=== PATIENT | male | born 1990 ===

== ENCOUNTER 2016-08-05 12:05 | Emergency (ER) | payer MEDICAID ==
[2016-08-05 12:16] VITALS: RESP 18
--- NOTE | 2016-08-05 14:12 | C.PDOC ---
History Of Present Illness 26 y/o male c/o cough with whitish yellow sputum, headache when coughing, feeling hot and cold and feeling like he wants to throw up after coughing x 4 days with rhinorrhea. pt taking nyquil and dayquil with no improvement. pt denies cp, sob. no known sick contacts. Time Seen by Provider: 08/05/16 13:10 Chief Complaint (Nursing): Cough, Cold, Congestion Past Medical History Reviewed: Historical Data, Nursing Documentation, Vital Signs Vital Signs: Last Vital Signs Temp 97.1 F L 08/05/16 12:14 Pulse 77 08/05/16 12:14 Resp 18 08/05/16 12:14 BP 130/78 08/05/16 12:14 Pulse Ox 97 08/05/16 12:14 - Medical History PMH: Anxiety, Asthma, Bronchitis Surgical History: No Surg Hx - [facility] Procedures TETANUS TOXOID ADMINIST (06/18/14) Family History: States: Unknown Family Hx - Social History Hx Tobacco Use: No Hx Alcohol Use: Yes Hx Substance Use: No - Immunization History Hx Tetanus Toxoid Vaccination: No Hx Influenza Vaccination: No Hx Pneumococcal Vaccination: No Review Of Systems Constitutional: Positive for: Chills, Malaise. Negative for: Fever Eyes: Negative for: Pain ENT: Negative for: Ear Pain Cardiovascular: Negative for: Chest Pain, Palpitations Respiratory: Positive for: Cough. Negative for: Shortness of Breath, SOB with Excertion, Pleuritic Pain, Wheezing Gastrointestinal: Negative for: Nausea, Vomiting, Abdominal Pain Physical Exam - Physical Exam Appears: Non-toxic, No Acute Distress Skin: Normal Color, Warm, Dry Head: Atraumatic, Normacephalic Oral Mucosa: Moist Tongue: Normal Appearing Lips: Normal Appearing Teeth: Normal Dentition Throat: Normal Neck: Normal, Normal ROM Cardiovascular: Rhythm Regular, No Murmur Respiratory: Normal Breath Sounds, No Rales, No Rhonchi, No Wheezing Gastrointestinal/Abdominal: Normal Exam, Bowel Sounds, Soft, No Tenderness ED Course And Treatment O2 Sat by Pulse Oximetry: 97 Medical Decision Making Medical Decision Makin26 y/o male with uri; will tx with ibuprofen and cough med, f/u pmd this week. Disposition Counseled Patient/Family Regarding: Diagnosis, Need For Followup, Rx Given - Disposition Disposition: HOME/ ROUTINE Disposition Time: 14:15 Condition: GOOD Prescriptions: Ibuprofen [Motrin] 600 mg PO TID #30 tab Guaifenesin [Mucinex] 600 mg PO BID #10 tab.er.12h Instructions: Upper Respiratory Infection (ED) - Clinical Impression Clinical Impression: Upper respiratory infection
[2016-08-05 15:00] VITALS: BP 149/70; PULSE 60; TEMP 98.1
[2016-08-07 06:39] VITALS: O2SAT 97
== END 2016-08-05 15:00 | disposition home or self-care (01) ==
LOC: C.ER 12:05
DX: J06.9 Acute upper respiratory infection, unspecified (principal)

== ENCOUNTER 2016-08-06 04:10 | Emergency (ER) | payer MEDICAID ==
[2016-08-06 04:30] VITALS: RESP 20; O2SAT 98
[2016-08-06] MEDS ORDERED: Albuterol-Ipratrop 3 mg / 0.5 (3 ml) UD INH STA (04:46)
--- NOTE | 2016-08-06 04:46 | C.PDOC ---
History Of Present Illness 26 year old patient presents to the ED complaining of chest congestion and tightness that began today. Patient was seen in the ED yesterday for URI symptoms and sent home with Juveex and Motjamie. Patient states he feels like he' s having "a bronchitis attack." Patient does not have an asthma pump. Patient denies fever. Time Seen by Provider: 08/06/16 04:15 Chief Complaint (Nursing): Cough, Cold, Congestion History Per: Patient History/Exam Limitations: no limitations Onset/Duration Of Symptoms: Days (1) Current Symptoms Are (Timing): Still Present Location Of Pain: Other Sick Contacts (Context): None Associated Symptoms: Other (chest congestion and tightness) Ear Symptoms: Bilateral: None Severity: Mild Pain Scale Rating Of: 3 Recent travel outside of the [place]: No Additional History Per: Prior Records Past Medical History Reviewed: Historical Data, Nursing Documentation, Vital Signs Vital Signs: Last Vital Signs Temp 97.8 F 08/06/16 05:46 Pulse 72 08/06/16 05:46 Resp 20 08/06/16 05:46 BP 135/72 08/06/16 05:46 Pulse Ox 98 08/06/16 05:46 - Medical History PMH: Anxiety, Asthma, Bronchitis - [facility] Procedures TETANUS TOXOID ADMINIST (06/18/14) Family History: States: Unknown Family Hx - Social History Hx Tobacco Use: No Hx Alcohol Use: Yes Hx Substance Use: No - Immunization History Hx Tetanus Toxoid Vaccination: No Hx Influenza Vaccination: No Hx Pneumococcal Vaccination: No Review Of Systems Except As Marked, All Systems Reviewed And Found Negative. Constitutional: Negative for: Fever Respiratory: Positive for: Shortness of Breath, Other (congestion) Physical Exam - Physical Exam Appears: Non-toxic, No Acute Distress Skin: Warm, Dry Head: Atraumatic, Normacephalic Eye(s): bilateral: Normal Inspection, PERRL, EOMI Ear(s): Bilateral: Normal Nose: Normal Throat: Normal, No Erythema Neck: Normal ROM, Supple Chest: Symmetrical Cardiovascular: Rhythm Regular Respiratory: No Rales, No Rhonchi, Wheezing (mild expiratory) Gastrointestinal/Abdominal: Soft, No Tenderness Back: No CVA Tenderness Extremity: Normal ROM Neurological/Psych: Oriented x3, Normal Speech, Normal Cognition Gait: Steady ED Course And Treatment O2 Sat by Pulse Oximetry: 98 (RA) Pulse Ox Interpretation: Normal Progress Note: Plan: -Duoneb, Prednisone. Patient feels better. Patient is discharged and instructed to follow up with PMD. Disposition Counseled Patient/Family Regarding: Diagnosis, Need For Followup, Rx Given - Disposition Referrals: [facility] [Outside] Disposition: HOME/ ROUTINE Disposition Time: 05:19 Condition: STABLE Additional Instructions: Please follow up with PMD or in clinic Continue Mucinex and take meds prescribed today Return to ER if worse Prescriptions: Albuterol HFA [Ventolin HFA 90 mcg/actuation (8 g)] 2 puff IH [id number] #1 inhaler predniSONE [Prednisone] 40 mg PO DAILY #10 tab Instructions: Upper Respiratory Infection (ED) - Clinical Impression Clinical Impression: Upper respiratory infection, Bronchospasm - PA / HEATER PLANER OPERATOR / Resident Statement MD/DO has reviewed & agrees with the documentation as recorded. - Scribe Statement The provider has reviewed the documentation as recorded by the Scribe Keturah Root All medical record entries made by the Scribe were at my direction and personally dictated by me. I have reviewed the chart and agree that the record accurately reflects my personal performance of the history, physical exam, medical decision making, and the department course for this patient. I have also personally directed, reviewed, and agree with the discharge instructions and disposition.
[2016-08-06] MEDS ORDERED: Albuterol-Ipratrop 3 mg / 0.5 (3 ml) UD ONE (04:49)
[2016-08-06 05:47] VITALS: BP 135/72; PULSE 72; TEMP 97.8
== END 2016-08-06 05:47 | disposition home or self-care (01) ==
LOC: C.ER 04:10
DX: J06.9 Acute upper respiratory infection, unspecified (principal); J98.01 Acute bronchospasm

== ENCOUNTER 2016-09-27 09:19 | Day surgery (SDC) | payer MEDICAID, MEDICARE ==
[2016-09-02 13:51] VITALS: BMI 29.2
[2016-09-27] MEDS ORDERED: Acetaminophen/Codeine elixir 120-12mg/5ml PO PRN (10:02)
[2016-09-27] MEDS ORDERED: Dextrose 5%/0.45% NS 1,000 ML IV SCH (10:15)
[2016-09-27] MEDS ORDERED: ceFAZolin IV 2 gm in Dextrose 1 GM/50 ML BAG IVPB ONE (10:28)
[2016-09-27] MEDS ORDERED: Propofol 10 mg/ml Inj (20 ML) ONE ×2 (10:29→11:29)
[2016-09-27] MEDS ORDERED: Succinylcholine Chloride 20 mg/ml Syr (5 ml) IV ONE (10:29)
[2016-09-27] MEDS ORDERED: Lactated Ringer's 1,000 ML IV ONE ×2 (10:55→12:38)
[2016-09-27] MEDS ORDERED: Lactated Ringer's 1,000 ML IV SCH (12:00)
[2016-09-27] MEDS ORDERED: HYDROmorphone 0.5 mg/0.5 ml ISec IVP PRN (12:28)
--- NOTE | 2016-09-27 13:04 | OP ---
PROCEDURE DATE: 09/27/2016 PREOPERATIVE DIAGNOSIS: Chronic tonsillitis. POSTOPERATIVE DIAGNOSIS: Chronic tonsillitis. PROCEDURE: Tonsillectomy. SIGNIFICANT FINDINGS: Chronically infected tonsils. DESCRIPTION OF PROCEDURE: The patient was brought in room, placed in supine position. Anesthesia wa s initiated through an ET tube. The patient was draped in the usual manner. Mouth gag was placed in the oral cavity, opened, suspended on the [employer] channel marketing specialist usual manner. Right tonsil was grasped, pul led medially. Incision was made in the anterior tonsillar pillar using plasma knife. Dissection was done between tonsil and tonsillar fossa using plasma knife until the tonsil was removed. Bleeding w as controlled using plasma knife. Next, the other tonsil was grasped, pulled medially. Incision was made in the anterior tonsillar pillar using plasma knife. Dissection was done between tonsil and to nsillar fossa using plasma knife until the tonsil was removed. Bleeding was controlled using plasma knife. Both tonsillar beds were rubbed vigorously with plasma knife wand. No bleeding was noted. M outh gag was let down for 30 seconds, put back up. No bleeding was noted. The mouth gag was taken d own and removed. The patient was extubated, was noted to bleeding from the mouth. Therefore, the pa tient was reintubated. Mouth gag was placed in oral cavity, opened, suspended on the [employer] channel marketing specialist u sual manner. Bleeding area was noted in the left tonsillar fossa and controlled using the plasma kni fe. The mouth gag was taken down and removed. The patient was taken off anesthesia and taken to rec overy room in stable manner. Blaine Burris MD cc: [id number] TT: 09/27/2016 13:03:56 al
[2016-09-27 14:09] VITALS: BP 123/70; PULSE 70; RESP 18; TEMP 97.1; O2SAT 100
== END 2016-09-27 13:30 | disposition home or self-care (01) ==
LOC: C.SDS 09:19
PROVIDERS: ATTEND Otolaryngology
DX: J35.01 Chronic tonsillitis (principal)
CPT/HCPCS: 42826; 88304; J0690; J2405; J2704; J3010; J7120

== ENCOUNTER 2016-10-02 00:58 | Emergency (ER) | payer MEDICAID, MEDICARE ==
[2016-09-02 13:51] VITALS: BMI 29.2
[2016-10-02 04:39] VITALS: BP 129/80; PULSE 62; RESP 18; TEMP 98; O2SAT 100
[2016-10-02 08:24] LABS: BASO % 0.3 % (0.0-2.0); EOS # 0.2 K/uL (0.0-0.7); EOS % 2.1 % (0.0-4.0); LYMPH # 1.3 K/uL (1.0-4.3); LYMPH % 15.1 % (20.0-40.0); MEAN CELL VOLUME 89.4 fL (80.0-94.0); MEAN CORPUSCULAR HEMOGLOBIN 30.3 pg (27.0-31.0); MEAN PLATELET VOLUME 7.8 fL (7.2-11.7); MONO # 1.1 K/uL (0.0-0.8); MONO % 12.6 % (0.0-10.0); RED CELL DISTRIBUTION WIDTH 13.1 % (11.5-14.5); WHITE BLOOD COUNT 8.7 K/uL (4.8-10.8)
[2016-10-02 08:25] LABS: ALKALINE PHOSPHATASE 60 U/L (38-126); ALT/SGPT 21 U/L (21-72); AST/SGOT 31 U/L (17-59); BLOOD UREA NITROGEN 14 mg/dL (9-20); CALCIUM 8.8 mg/dl (8.6-10.4); CARBON DIOXIDE 30 mmol/L (22-30); CHLORIDE 92 mmol/L (98-107); GFR AFRICAN-AMERICAN > 60; GLUCOSE,RANDOM 101 mg/dL (75-110); POTASSIUM 4.1 mmol/L (3.6-5.2); SODIUM 132 mmol/L (132-148); TOTAL PROTEIN 8.1 g/dL (6.3-8.3)
[2016-10-02 08:26] LABS: ALB/GLOB RATIO 1.2 (1.0-2.1)
== END 2016-10-02 03:00 | disposition home or self-care (01) ==
LOC: C.ER 00:58
DX: E86.0 Dehydration (principal)

== ENCOUNTER 2018-02-19 16:46 | Emergency (ER) | payer MEDICARE, MEDICAID ==
[2018-02-19 16:46] VITALS: BMI 29.2
[2018-02-19 16:52] VITALS: BP 136/85; PULSE 82; RESP 20; TEMP 98.4; O2SAT 100
[2018-02-19] MEDS ORDERED: Bacitracin 500 Units/gm Oint Foilpak UD TOP ONE (17:29)
--- NOTE | 2018-02-19 17:31 | C.PDOC ---
History Of Present Illness 27 year old male presents to the ED for evaluation of intermittent left nasal bleeding since last night. Patient reports cold symptoms for the last 3 days associated with nasal congestion, runny nose, dry cough for past 1 week. Otherwise, pt denies fever, chills, headache, dizziness, drooling, dysphagia, dypsnea, wheezing, abd. pain, nausea, vomiting, and any other associated symptoms. Ambulate to Ed for evaluation, no active epistaxis now. Time Seen by Provider: 02/19/18 17:12 Chief Complaint (Nursing): ENT Problem History Per: Patient History/Exam Limitations: None Onset/Duration Of Symptoms: Hrs Current Symptoms Are (Timing): Still Present Past Medical History Reviewed: Historical Data, Nursing Documentation, Vital Signs Vital Signs: Last Vital Signs Temp 98.4 F 02/19/18 16:49 Pulse 82 02/19/18 16:49 Resp 20 02/19/18 16:49 BP 136/85 02/19/18 16:49 Pulse Ox 100 02/19/18 16:49 - Medical History PMH: Anxiety, Bronchitis Comment Only: Asthma ((PT. DENIES- "I JUST HAVE BRONCHITIS AT TIMES")) - [facility] Procedures TETANUS TOXOID ADMINIST (06/18/14) Family History: States: Unknown Family Hx - Social History Hx Tobacco Use: No Hx Alcohol Use: Yes Hx Substance Use: No - Immunization History Hx Tetanus Toxoid Vaccination: No Hx Influenza Vaccination: No Hx Pneumococcal Vaccination: No Review Of Systems Except As Marked, All Systems Reviewed And Found Negative. Constitutional: Negative for: Fever, Chills ENT: Positive for: Nose Discharge, Nose Congestion, Other (left nasal bleeding ) Gastrointestinal: Negative for: Nausea, Vomiting Physical Exam - Physical Exam Appears: Well, Non-toxic, No Acute Distress Skin: Normal Color, Warm, Dry, No Rash Head: Normacephalic Eye(s): bilateral: PERRL Ear(s): Bilateral: Normal Nose: No Flaring, Discharge (B/L congestion with clear rhinorrhea), No Epistaxis (no active epistaxis now, bloody crust noted to left nastril), No Tenderness Oral Mucosa: Moist, No Drooling Tongue: Normal Appearing Lips: Normal Appearing Throat: Erythema (mild B/L), No Exudate, No Drooling Neck: Trachea Midline, Supple Cardiovascular: Rhythm Regular, No Murmur, No JVD Respiratory: No Decreased Breath Sounds, No Accessory Muscle Use, No Stridor, No Wheezing Gastrointestinal/Abdominal: Soft, No Tenderness, No Distention, No Guarding Extremity: Normal ROM, No Deformity, No Swelling Neurological/Psych: Oriented x3, Normal Speech ED Course And Treatment O2 Sat by Pulse Oximetry: 100 (RA) Pulse Ox Interpretation: Normal Progress Note: On re-evaluation, pt is afebrile, hemodynamicaly stable. non- toxic, tolearte PO well in ED. PulsEOx 100% RA. ENT: B/L nasal congestion with clear rhinorrhea, no active epistaxis at present time. No drooling. neck: Supple, (-) meningeal sign. Lungs: CTA B/L, Bs equal B/L. Abd: benign, (-) guarding, (-) rebound. Neuorlogicaly intact. Pt has clinical findings c/w acute bronchitis, epistaxis. Pt advised. ref. to f/u with PMD, ENT in 2-3 days for re-eavl. return if any new changes. Disposition Counseled Patient/Family Regarding: Studies Performed, Diagnosis, Need For Followup, Rx Given - Disposition Referrals: Mikaela Bennett MD [Non-Staff] - Blaine Burris MD [Staff Provider] - Disposition: HOME/ ROUTINE Disposition Time: 17:30 Condition: STABLE Additional Instructions: Encourage fluids Take medication as prescribed Moisturize nose with vaseline follow up with PMD, ENT In 2-3 days for re-evaluation. return to ED if any worsening or new changes. Prescriptions: Albuterol HFA [Ventolin HFA 90 mcg/actuation (8 g)] 1 puff IH Q6 #1 inhaler Azithromycin [Zithromax] 250 mg PO DAILY #4 tab Benzonatate [Tessalon Perle] 100 mg PO TID #14 capsule Prednisone [Deltasone] 40 mg PO DAILY #6 tablet Instructions: Nosebleeds, Acute Bronchitis Forms: [facility] (Chinese) - Clinical Impression Clinical Impression: Bronchitis, Epistaxis - PA / MUSEUM LIBRARIAN / Resident Statement MD/DO has reviewed & agrees with the documentation as recorded. - Scribe Statement The provider has reviewed the documentation as recorded by the Scribe (Jane Valencia) All medical record entries made by the Scribe were at my direction and personally dictated by me. I have reviewed the chart and agree that the record accurately reflects my personal performance of the history, physical exam, medical decision making, and the department course for this patient. I have also personally directed, reviewed, and agree with the discharge instructions and disposition.
[2018-02-19] MEDS ORDERED: Bacitracin 500 Units/gm Oint Foilpak UD ONE (17:38)
== END 2018-02-19 17:54 | disposition home or self-care (01) ==
LOC: C.ER 16:46
DX: J40 Bronchitis, not specified as acute or chronic (principal); R04.0 Epistaxis